=== PATIENT | female | born 1965 | race Caucasian/White ===

== ENCOUNTER 2024-10-05 16:07 | Emergency (ER) | payer SELFPAY ==
[2024-10-05] VITALS (11 sets, daily range): BP systolic 141–160; BP diastolic 72–126; PULSE 89–105; RESP 14–21; TEMP 36.4; O2SAT 97–100; BMI 41.3
--- NOTE | 2024-10-05 16:58 | EDS_ITS ---
HPI History of Present Illness Chief Complaint: Hypertension Detail of Chief Complaint: Patient presents for his elevated blood pressure of 172/90 at home Informant: patient Onset/Context/Timing Onset: - (Patient's had intermittent numbness left upper extremity for 1.5 weeks) Context: Sudden Onset Timing: Intermittent Quality: Numbness and daughter states extremity was cold Location: Duration minutes, multiple per day Current Severity: Gone Maximum Severity: Moderate Worsened by: Nothing Relieved by: nothing Associated Symptoms Associated Symptoms: None Narrative Narrative: patient is a 58-year-old woman. She has history of hypertension and prediabetes. She does check her blood sugars regularly. Patient presents because of elevated blood pressure and she states that her daughters made her come in. She is also had intermittent left upper extremity pain. The entire extremity. She has no other neurologic symptoms i.e. muscle weakness. She denies double vision, blurred vision loss of vision. Eyes regulars decreased hearing. Denies trouble speech or swallowing. She denies problems with coordination or balance. [facility] Medical History (Updated 10/05/24 @ 18:[address] Graeme Alvarez MD) Pre-diabetes HTN (hypertension) Allergy/AdvReac Type Severity Reaction Status Date / Time No Known Allergies Allergy Verified 10/05/24 16:08 Social History Smoking Status: Never smoker EXAM Physical Exam Const Vital Signs: 10/05/24 16:08 10/05/24 16:30 Temperature 97.5 F L Temperature Source Temporal Pulse Rate 91 Respiratory Rate 15 Respiratory Pattern Normal Blood Pressure 154/105 H Blood Pressure Mean 121 Pulse Ox 97 Oxygen Delivery Method Room Air [facility] Lab Data Attestation: I reviewed the patient's lab results. Lab results narrative: White count is slightly elevated 11.9 thousand with normal H&H and indices. E lectrolyte panel with slight elevation of glucose 106. BUN and creatinine ratio slightly elevated. Labs: Laboratory Results - last 24 hr 10/05/24 16:10 WBC 11.9 H RBC 4.73 Hgb 13.6 Hct 40.7 MCV 86.0 MCH 28.8 MCHC 33.4 RDW Std Deviation 41.2 RDW Coeff of Nguyen 13.2 Plt Count 295 MPV 9.1 Sodium 138 Potassium 4.2 Chloride 105 Carbon Dioxide 22.4 Anion Gap 10 BUN 19 Creatinine 0.90 Estim Creat Clear Calc 91.28 Est GFR (MDRD) Non-Af 74 BUN/Creatinine Ratio 20.5 H Glucose 106 H Calcium 9.2 Treatment and Re-Evaluation :: Patient refused CAT scan. Patient demanded an EKG. Patient was told her symptoms are not consistent with an EKG. An EKG is obtained to to see if there is a dysrhythmia and she has been on the monitor and she has had no dysrhythmia. While I was talking her I informed her that her heart rate is elevated. She states I am making her angry. She again is requesting an EKG. I informed her I have no justification for an EKG and I need justification to order it. She was informed you know why I wanted a CAT scan. She states that she is she does not need 1. Discharge Plan Triage Chief Complaint: Hypertension ED Provider: Graeme Alvarez Dx/Rx/DC Orders Clinical Impression: Accelerated essential hypertension, Paresthesia of left upper limb, Prediabetes Instructions: ED High Blood Pressure Hypertension, ED Paraesthesias Primary Care Provider: Apolonia Johnston Referrals: Apolonia Johnston PA [Primary Care Provider] - 3-5 Days Activity Restrictions/Additional Instructions: I was informed reason why a CAT scan was ordered. I understand there is risk by not having a CAT scan. This would include stroke, missed brain tumor, debility which would include not being able to perform activities of daily living, loss of use left upper extremity, seizure disorder, . Print Language: Thai Disposition Disposition: Home, Self Care
[2024-10-05 17:12] LABS: Hematocrit 40.7 % (37-47); Hemoglobin 13.6 g/dL (12.0-15.0); Mean Corp Hgb Conc 33.4 g/dL (32-36); Mean Corpuscular Hgb 28.8 pg (27.0-32.0); Mean Platelet Vol. 9.1 fl (6.2-12.0); Platelet Count 295 K/mm3 (150-450); RBC Distribution Width CV 13.2 % (11.6-14.6); RBC Distribution Width SD 41.2 fl (35.1-43.9); Red Blood Count 4.73 M/mm3 (4.2-5.4); White Blood Count 11.9 K/mm3 (4.4-11.0)
[2024-10-05 17:17] LABS: Anion Gap 10 (5-15); BUN 19 mg/dL (4-19); BUN/Creat Ratio 20.5 RATIO (10-20); Calcium,Total 9.2 mg/dL (7.6-11.0); Carbon Dioxide 22.4 mmol/L (21.0-32.0); Chloride 105 mmol/L (98-108); EST Glomerular Filtration Rate 74 (>60); Estimated Creatinine Clearance 91.28 ml/min (50-250); Glucose 106 mg/dL (70-99); Potassium 4.2 mmol/L (3.3-5.1); Sodium Level 138 mmol/L (133-145)
--- NOTE | 2024-10-05 18:36 | ED.RN ---
when this rn goes in to discharge patient and go over dc instructions, family questions if the patient needed to sign an AMA form. This RN states that this rn was unaware of an AMA needing to be signed. this rn was only aware that the patient refused her CT scan. this rn apologized for not being able to come in sooner when she first refused the CT scan since this rn was in with a critical patient. pt states understanding but says that she has been having HTN, numbness and pain into her back for a week. 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 pt states that she was never given an EKG and was told by Dr. Alvarez that her symptoms did not warrant an EKG and her bloodwork was unremarkable. pt states that her mother of an DC and she wanted to be cautious. pt and family member stated that MD rubbed them the wrong way. according to pt MD stated i do not mess up. this rn reassures patient and pt's family that MD is a great physician. this rn asks pt and family member what we can do to make her experience better. pt states nothing, i am leaving and going somewhere that will give me an EKG. this rn asks if patient would like to speak to the charge nurse Nikki. pt declines and states there is nothing that we can do at this time. pt states after she leaves that this rn may talk to the charge nurse about the situation. this RN offers that if pt leaves and changes her mind and wants to speak to someone in regards to her care, she is more than welcome to call into the ED and request to speak with charge nurse Jordan, this RN, or ask for Yuly, mortgage sales manager. pt states understanding and reassures this rn that it is not this RN's fault and she is sorry that this rn had to hear the wrath of the pt. charge nurse notified after pt departs ED per her wishes and charge nurse to talk to the physician.
== END 2024-10-05 19:00 | disposition home or self-care (01) ==
PROVIDERS: Emergency Provider Emergency Medicine; PCP Physician Assistant; Referring Provider Emergency Medicine; Visit Provider Emergency Medicine
DX: I10 Essential (primary) hypertension (principal); R73.03 Prediabetes; R20.2 Paresthesia of skin
CPT/HCPCS: 80048; 85027; 99284; A4216